=== PATIENT | female | born 1955 | race Caucasian/White ===

== ENCOUNTER 2017-01-08 14:28 | Emergency (ER) | payer OTHER ==
--- NOTE | 2017-01-08 14:56 | CPEKG ---
Heart Rate: 67 RR Interval: 896 P-R Interval: 184 QRSD Interval: 70 QT Interval: 388 QTC Interval: 410 P [place]: 87 QRS Kenneth: 32 T Wave Kenneth: 65 EKG Severity - NORMAL ECG - EKG Impression: SINUS RHYTHM Electronically Signed By: Donna Pastrana 08-Jan-2017 15:54:47
--- NOTE | 2017-01-08 15:31 | EDPHY ---
H & P Stated Complaint: C/O tingling palm L hand noticed after using handweights Source: Patient - Personal History Current Tetanus Diphtheria and Acellular Pertussis (TDAP): Yes - Medical/Surgical History Other PMH: chronic issues with neck/L shoulder/low back issues. L-4 stenosis. anxiety/depression. insomnia. TMJ - Social History Smoking Status: Never smoked Time Seen by Provider: 01/08/17 14:40 HPI/ROS: This is a 60-year-old female presenting to the emergency department, complaining of intermittent left arm tingling onset yesterday after working out. Patient states she did have something similar about 2 years ago which resolved. This episode which started yesterday after lifting weights resolved, then this morning after working out again started noting some tingling to the left arm which once again resolved. Denies any shortness of breath or chest pain. Patient did report she is under lot of stress just went out of town and she is having to take care of her mother who has Alzheimer's. Patient also reports she does have chronic issues with her cervical spine and lumbar spine. Denies any other complaints REVIEW OF SYSTEMS: Constitutional: (-)fatigue (-)changes in ADL's Eyes: (-)blurred vision Respiratory: (-)cough (-)shortness of breath Cardiac: (-)chest pain (-)palpitations Gastrointestinal: (-)abdominal pain (-)vomit Musculoskeletal: (-)back pain (+)left arm tingling which has resolved Skin: (-)rashes Neurological: (-) headache (-)dizziness Psych: (-)anxiety (Coty Garcia) - Physical Exam Exam: CONSTITUTIONAL: patient appeared well nourished, non-ill appearing and normally developed. No acute distress. Vital signs as documented. HEENT: NCAT. PERRLA. EOMI. NECK: Supple, FROM (-)C-spine tenderness RESP: Non-labored resp effort, airway patent, CTAB CARDIAC: RRR w/o murmur, ysabel. Normal S1/S2 NEURO: AAOx3 NAD CNII-XII intact ambulatory with steady gait EXTREMITIES: (+)FROM without difficulty. (+)cms intact (+)equal bilat ed transporter strength no deficits noted SKIN: (-)rash. (-)lesions (-)acute injury LYMPH: No lymphadenopathy PSYCH: Normal affect, calm, no distress PSYCH: (-)anxiety (Coty Garcia) Constitutional: Initial Vital Signs Temperature (C) 36.4 C 01/08/17 14:29 Heart Rate 90 01/08/17 14:29 Respiratory Rate 18 01/08/17 14:29 Blood Pressure 162/63 H 01/08/17 14:29 O2 Sat (%) 97 01/08/17 14:29 O2 Delivery Mode Room Air O2 (L/minute) 99 Allergies/Adverse Reactions: NSAIDS (Non-Steroidal Anti-Inflamma Allergy (Severe, Verified 01/08/17 14:35) throat closes up Penicillins Allergy (Mild, Verified 01/08/17 14:35) Rash Sulfa (Sulfonamide Antibiotics) Allergy (Mild, Verified 01/08/17 14:35) Rash Home Medications: Medication Instructions Recorded Mirtazapine [Remeron soltab 15 mg 15 mg PO DAILY 01/08/17 (*)] lamoTRIgine [LamICTAL 100 MG (*)] 100 mg PO 01/08/17 Medical Decision Making - Diagnostics EKG Interpretation: EKG is normal sinus rhythm no ectopy (Coty Garcia) ED Course/Re-evaluation: Discussed the plan of care: EKG--> sinus rhythm no ectopy Discharged home--->stable, discussed discharge instructions with patient 1. Rest, Decrease strenuous activity 2. Follow up with primary care provider, outpatient MRI may be recommended the cervical neck for further evaluation 3. Heating pad or hot tub soaks, you can also use icy Hot or capsaicin to the left trapezius but do not use a heating pad if you are using these topical ointments as you can bring her skin 4. Your EKG was normal no abnormality seen. 5. If at any point in time you feels symptoms have worsened your having chest pain increased anxiety return to the emergency department. Patient verbalized understanding of discharge instructions (Coty Garcia) This patient was seen and examined by me. Neck exam-reproducible left-sided neck tenderness which causes tingling in her hand, motor/sensory intact. I considered a cardiovascular etiology for this patient's discomfort, however her symptoms are most consistent with cervical radiculopathy. She has no exertional pain. The pain has been aggravated after upper extremity weightlifting in the gym. I have advised her to avoid weightlifting for now. ( Donna Pastrana) Differential Diagnosis: Clinical impression cervical radiculopathy, other differential diagnosis considered but not limited to EKG abnormalities, chest pain cervical strain ( Coty Garcia) Departure - Departure Disposition: Home, Routine, Self-Care Clinical Impression: Cervical radiculopathy Condition: Good Instructions: Cervical Radiculopathy (ED) Additional Instructions: Discharged home--->stable, discussed discharge instructions with patient 1. Rest, Decrease strenuous activity 2. Follow up with primary care provider, outpatient MRI may be recommended the cervical neck for further evaluation 3. Heating pad or hot tub soaks, you can also use icy Hot or capsaicin to the left trapezius but do not use a heating pad if you are using these topical ointments as you can bring her skin 4. Your EKG was normal no abnormality seen. 5. If at any point in time you feels symptoms have worsened your having chest pain increased anxiety return to the emergency department. Patient verbalized understanding of discharge instructions Referrals: Jessica Carbajal MD [Primary Care Provider] - As per Instructions
[2017-01-08 15:47] VITALS: BP 130/67; PULSE 71; RESP 16; TEMP 97.3; O2SAT 99
== END 2017-01-08 15:48 | disposition home or self-care (01) ==
DX: M54.12 Radiculopathy, cervical region (principal)

== ENCOUNTER 2017-01-21 10:43 | Emergency (ER) | payer OTHER ==
--- NOTE | 2017-01-21 11:55 | EDPHY ---
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 The patient has a history of known lumbar DJD. She has no prior history of spine surgery. She is not anticoagulated. The patient denies any acute numbness or weakness. The patient denies any upper back pain, cervical spine pain or headache. She specifically denies additional traumatic complaints. Her pain is worsened with flexion and extension as well as axial rotation. She rates her pain is moderate in nature. REVIEW OF SYSTEMS: A comprehensive 10 point review of systems is otherwise negative aside from elements mentioned in the history of present illness. Source: Patient - Personal History Current Tetanus/Diphtheria Vaccine: Unsure Current Tetanus Diphtheria and Acellular Pertussis (TDAP): Unsure - Medical/Surgical History Hx Asthma: No Hx Chronic Respiratory Disease: No Hx Diabetes: No Hx Cardiac Disease: No Hx Renal Disease: No Hx Cirrhosis: No Hx Alcoholism: No Hx HIV/AIDS: No Hx Splenectomy or Spleen Trauma: No Other PMH: chronic issues with neck/L shoulder/low back issues. L-4 stenosis. anxiety/depression. insomnia. TMJ - Social History Smoking Status: Never smoked - Physical Exam Exam: General Appearance: Alert, no distress Head: Atraumatic Eyes: Pupils equal, round, reactive ENT, Mouth: No hemotympanum, no oral trauma Neck: Nontender, trachea midline Respiratory: No chest wall tender, subcutaneous air, lungs clear bilaterally Cardiovascular: Regular rate and rhythm Abdomen: Abdomen is soft and nontender, pelvis stable, right gluteal tenderness present Skin: No lacerations, No abrasion Back: Tenderness to palpation throughout the mid lumbar spine, no hematoma Extremities: Nontender, full range of motion Neurological: A&Ox3, normal motor function, normal sensory exam Constitutional: Initial Vital Signs Temperature (C) 36.4 C 01/21/17 10:45 Heart Rate 92 01/21/17 10:45 Respiratory Rate 22 H 01/21/17 10:45 Blood Pressure 139/110 H 01/21/17 10:45 O2 Sat (%) 100 01/21/17 10:45 O2 Delivery Mode Room Air Allergies/Adverse Reactions: NSAIDS (Non-Steroidal Anti-Inflamma Allergy (Severe, Verified 01/08/17 14:35) throat closes up Penicillins Allergy (Mild, Verified 01/08/17 14:35) Rash Sulfa (Sulfonamide Antibiotics) Allergy (Mild, Verified 01/08/17 14:35) Rash Home Medications: Medication Instructions Recorded Mirtazapine [Remeron soltab 15 mg 15 mg PO DAILY 01/08/17 (*)] lamoTRIgine [LamICTAL 100 MG (*)] 100 mg PO 01/08/17 oxyCODONE IR [Oxycodone Ir (*)] 5 - 10 mg PO Q6 PRN #20 tab 01/21/17 Medical Decision Making - Diagnostics Imagin. Lumbar spine x-ray: Images reviewed by myself, impression: Acute L2 compression fracture. 2. Pelvis x-ray: Images reviewed by myself, impression: Negative for acute fracture ED Course/Re-evaluation: The patient presents to the ED with acute lumbar pain following a mechanical fall. She is neurologically intact. She is noted to have a mild L2 compression fracture. Patient will be fitted in a [place] support brace which was ordered by myself from [facility] orthopedic device on 12:30pm. The patient will be discharged home with a prescription for OxyContin to use in addition to Tylenol. The patient is intolerant to NSAIDs. The patient continues to have a normal neurologic examination without evidence of detectable spinal cord insufficiency noted to lower extremities. She has no hyperreflexia or clonus appreciated. The patient will be discharged home and follow up with our on-call neurosurgeon Dr. Ying. Differential Diagnosis: Differential diagnosis considered includes lumbar compression fracture, myofascial strain, lumbar disc herniation Departure - Departure Disposition: Home, Routine, Self-Care Clinical Impression: Compression fracture of L2 Condition: Good Instructions: Vertebral Compression Fracture (ED) Additional Instructions: 1. Please wear brace as needed for comfort. 2. Tylenol 1 g every 6 hours as needed for pain. 3. Oxycodone as needed for severe pain. 4. Please schedule a follow-up appointment with a neurosurgeon you have been referred to in the next week Referrals: Renny Ying MD [Medical Doctor] - As per Instructions Prescriptions: oxyCODONE IR [Oxycodone Ir (*)] 5 - 10 mg PO Q6 PRN #20 tab PRN Reason: for pain
[2017-01-21 12:30] VITALS: RESP 18; TEMP 98.1
[2017-01-21 14:26] VITALS: BP 122/67; PULSE 84; O2SAT 95
== END 2017-01-21 14:26 | disposition home or self-care (01) ==
DX: S32.020A Wedge compression fracture of second lumbar vertebra, initial encounter for closed fracture (principal); W18.39XA Other fall on same level, initial encounter; Y92.009 Unspecified place in unspecified non-institutional (private) residence as the place of occurrence of the external cause

== ENCOUNTER → 2017-02-22 | Outpatient (CLI) | payer OTHER | LOC: FIMAGING 09:44 | DX: Z12.31 Encounter for screening mammogram for malignant neoplasm of breast (principal) | CPT/HCPCS: G0202 ==

== ENCOUNTER → 2018-03-04 | Outpatient (CLI) | payer OTHER | LOC: FIMAGING 10:40 | PROVIDERS: ATTEND Obstetrics & Gynecology Gynecology | DX: Z12.31 Encounter for screening mammogram for malignant neoplasm of breast (principal) ==

== ENCOUNTER 2018-04-30 14:07 | Emergency (ER) | payer OTHER ==
[2018-04-30] MEDS ORDERED: NS 1,000 ML IV ONE ×2 (14:47→16:33)
--- NOTE | 2018-04-30 14:56 | EDPHY ---
H & P Smoking Status: Never smoked Time Seen by Provider: 04/30/18 14:26 HPI/ROS: CHIEF COMPLAINT: Dizziness HISTORY OF PRESENT ILLNESS: Patient states this morning around 11 o'clock she noticed she was feeling dizzy. She describes the dizziness as a lightheadedness , no spinning sensation. No changes with position. No syncope although she felt lightheaded such that she might pass out. She denies diaphoresis. She has had no chest pain or palpitations. She had no shortness of breath. She was able to do her normal 0.5 hr walk and other exercises this morning without difficulty. She states she ate breakfast and she slept well last night. Additionally she has had no recent medication changes either to prescription or [id number] medications. She had a cardiac workup in November of this year with Dr. Cindy Vaz and was told that her"heart was awesome". This evaluation was done for palpitations. REVIEW OF SYSTEMS: Constitutional: No fever, no chills. Eyes: No discharge. ENT: No sore throat. Cardiovascular: No chest pain, no palpitations. Respiratory: No cough, no shortness of breath. Gastrointestinal: No abdominal pain, no vomiting. Genitourinary: No dysuria. Musculoskeletal: No back pain. Skin: No rashes. Neurological: No headache. General Appearance: Alert, no distress. Eyes: Pupils equal and round no pallor or injection. ENT, Mouth: Mucous membranes moist. Respiratory: There are no retractions, lungs are clear to auscultation. Cardiovascular: Regular rate and rhythm. Gastrointestinal: Abdomen is soft and nontender, no masses, bowel sounds normal. Neurological: Awake and alert, normal cranial nerves, normal strength sensation all 4 extremities. No focal neurologic deficits. Skin: Warm and dry, no rashes. Musculoskeletal: Neck is supple nontender. Extremities are symmetrical, full range of motion, no edema. Psychiatric: Patient is oriented X 3, there is no agitation. Medical/surgical history: Chronic back and shoulder pain, L4 stenosis, anxiety and depression, insomnia, TMJ. Surgeries as child hernia and tonsils. Social history: No alcohol, tobacco, drugs. (Jennie Turpin) Constitutional: Initial Vital Signs Temperature (C) 37 C 04/30/18 14:16 Heart Rate 67 04/30/18 14:16 Respiratory Rate 16 04/30/18 14:16 Blood Pressure 151/65 H 04/30/18 14:16 O2 Sat (%) 100 04/30/18 14:16 O2 Delivery Mode Room Air Allergies/Adverse Reactions: NSAIDS (Non-Steroidal Anti-Inflamma Allergy (Severe, Verified 04/30/18 14:20) throat closes up Penicillins Allergy (Mild, Verified 04/30/18 14:20) Rash Sulfa (Sulfonamide Antibiotics) Allergy (Mild, Verified 04/30/18 14:20) Rash Home Medications: Medication Instructions Recorded Mirtazapine [Remeron soltab 15 mg 15 mg PO DAILY 01/08/17 (*)] lamoTRIgine [LamICTAL 100 MG (*)] 100 mg PO 01/08/17 Fosamax 35 MG 04/30/18 Gabapentin 04/30/18 Medical Decision Making - Diagnostics EKG Interpretation: 12 lead EKG performed at 3:02 p.m. Reveals sinus rhythm at 61 Intervals: P R of 224, other intervals normal [place]: Normal throughout Overall assessment sinus rhythm with first-degree AV block. Please refer to trace master for complete read. (Jermaine Owen) ED Course/Re-evaluation: Course: IV normal saline bolus x1 L. Orthostatics were then checked on patient had a 15 point increase in her pulse when she stood up with still felt slightly lightheaded though improved after 1 L. 2nd L bolus is administered and after that patient felt a further improvement with resolution of lightheadedness while standing. Studies: CBC and urinalysis normal, basic metabolic panel notable for slightly low sodium at 1:34 a.m. And slightly low chloride. Otherwise normal troponin also normal Discussion: After workup, EKG shows no evidence of acute ischemic cardiac disease, heart strain or other red flag findings. Labs are also normal exception of slightly low sodium and chloride that may correlate with some dehydration. Counseled patient regarding this. She felt reassured improved after IV fluids. Patient will follow up with primary care physician for any ongoing symptoms understands need to return emergency department should she develop worsening symptoms despite plan of hydration with electrolyte neutral fluid such as coconut juice, sport drinks etc (Jermaine Owen) Differential Diagnosis: Differential diagnosis includes but is not limited to labyrinthitis, vertigo, dehydration, electrolyte abnormality, acute coronary syndrome, viral syndrome. Discussed with Dr. Jermaine Owen at the time of my departure from the emergency department. Pending testing included EKG, labs, re-evaluation after IV fluids. (Jennie Turpin) - Data Points Laboratory Results: 04/30/18 04/30/18 15:09 15:07 POC Sodium 134 mEq/L L mEq/L (135-145) POC Potassium 3.8 mEq/L mEq/L (3.3-5.0) POC Chloride 94.0 mEq/L L mEq/L (97-110) POC Total CO2 26 mEq/L mEq/L (22-31) POC BUN 12 mg/dL mg/dL (7-23) POC Creatinine 0.6 mg/dL mg/dL (0.6-1.0) POC Glucose 119 mg/dL H mg/dL (70-100) POC Calcium 9.8 mg/dL mg/dL (8.5-10.4) POC Troponin I 0.00 ng/mL ng/mL (0.00-0.08) Medications Given: Discontinued Medications Sodium Chloride (Ns) 1,000 mls @ 0 mls/hr IV EDNOW ONE; Wide Open PRN Reason: Protocol Stop: 04/30/18 14:48 Last Admin: 04/30/18 15:17 Dose: 1,000 mls Sodium Chloride (Ns) 1,000 mls @ 0 mls/hr IV ONCE ONE; Wide Open PRN Reason: Protocol Stop: 04/30/18 16:34 Last Admin: 04/30/18 16:43 Dose: 1,000 mls Point of Care Test Results: CBC CBC Collection Date 04/30/18 CBC Collection Time 15:05 WBC 6.3 RBC 4.29 HGB 12.9 HCT 38.4 PLT 260 Neut # 4.3 Neut 68.9 LYMPH # 1.4 LYMPH 22.3 Other WBC # 0.6 Other WBC 8.8 MCV 89.5 Chemistry 04/30/18 04/30/18 15:09 15:07 POC Sodium 134 mEq/L L mEq/L (135-145) POC Potassium 3.8 mEq/L mEq/L (3.3-5.0) POC Chloride 94.0 mEq/L L mEq/L (97-110) POC Total CO2 26 mEq/L mEq/L (22-31) POC BUN 12 mg/dL mg/dL (7-23) POC Creatinine 0.6 mg/dL mg/dL (0.6-1.0) POC Glucose 119 mg/dL H mg/dL (70-100) POC Calcium 9.8 mg/dL mg/dL (8.5-10.4) POC Troponin I 0.00 ng/mL ng/mL (0.00-0.08) Urine Dip Collection Date 04/30/18 Collection Time 15:30 Specific [place] (1.002-1.030) 1.010 PH (5.0-7.5) 7.0 Leukocytes (Negative) Negative Nitrites (Negative) Negative Protein (Negative) Negative Glucose (Negative) Negative Ketones (Negative) Negative Urobilnogen (0.2-1.0 EU) 0.2 Bilirubin (Negative) Negative Blood (Negative) Negative Departure - Departure Disposition: Home, Routine, Self-Care Clinical Impression: Lightheadedness, Dehydration Condition: Good Instructions: Dehydration (ED) Additional Instructions: Diagnoses: Lightheadedness and dehydration Your EKG and labs look good today with exception of slightly low sodium and chloride likely attributable to dehydration. She received 2 L of saline IV here Plan: Drink plenty of electrolyte balance fluids such as coconut juice or sport drinks. Follow-up with primary care physician for any ongoing symptoms Return the emergency department for any significant worsening despite the treatment plan. Referrals: Jessica Carbajal MD [Primary Care Provider] - As per Instructions
--- NOTE | 2018-04-30 15:05 | CPEKG ---
Heart Rate: 61 RR Interval: 984 P-R Interval: 224 QRSD Interval: 90 QT Interval: 396 QTC Interval: 399 P [place]: 76 QRS [place]: 12 T Wave [place]: 34 EKG Severity - ABNORMAL ECG - EKG Impression: SINUS RHYTHM EKG Impression: FIRST DEGREE AV BLOCK Electronically Signed By: Jermaine Owen 30-Apr-2018 16:51:23
[2018-04-30 17:24] VITALS: BP 131/68
== END 2018-04-30 17:41 | disposition home or self-care (01) ==
LOC: CED 14:07
DX: R42 Dizziness and giddiness (principal); E86.9 Volume depletion, unspecified
CPT/HCPCS: 80048-PO; 84484-PO

== ENCOUNTER → 2018-08-16 | Outpatient (CLI) | payer OTHER | LOC: CIMAGING 12:32 | PROVIDERS: ATTEND Nurse Practitioner Family | DX: R09.89 Other specified symptoms and signs involving the circulatory and respiratory systems (principal); R10.13 Epigastric pain | CPT/HCPCS: 76700-PO ==

== ENCOUNTER → 2018-10-17 | Outpatient (CLI) | payer OTHER ==
[~2018-10-17] MED LIST: IOPAMIDOL (ISOVUE-300) 100 ML BTL ONE
== END ==
LOC: CIMAGING 10:09
PROVIDERS: ATTEND Family Medicine
DX: R93.2 Abnormal findings on diagnostic imaging of liver and biliary tract (principal); N94.89 Other specified conditions associated with female genital organs and menstrual cycle; K59.09 Other constipation
CPT/HCPCS: 74177; Q9967; 82565-PO

== ENCOUNTER → 2018-11-20 | Outpatient (CLI) | payer OTHER | LOC: CIMAGING 14:14 | PROVIDERS: ATTEND Internal Medicine | DX: R00.2 Palpitations (principal); R07.89 Other chest pain; R20.2 Paresthesia of skin | CPT/HCPCS: 71046-PO ==

== ENCOUNTER → 2019-01-28 | Outpatient (CLI) | payer OTHER | LOC: BHFA 13:30 | PROVIDERS: ATTEND Internal Medicine Cardiovascular Disease | DX: R00.2 Palpitations (principal) | CPT/HCPCS: 78452; 93017; A9500 ==

== ENCOUNTER → 2019-02-11 | Outpatient (CLI) | payer OTHER | LOC: BHCLAF 10:45 | PROVIDERS: ATTEND Internal Medicine Cardiovascular Disease | DX: I48.91 Unspecified atrial fibrillation (principal) | CPT/HCPCS: 93306-PO ==

== ENCOUNTER → 2019-03-27 | Outpatient (CLI) | payer OTHER | LOC: CIMAGING 10:23 | PROVIDERS: ATTEND Internal Medicine | DX: Z12.31 Encounter for screening mammogram for malignant neoplasm of breast (principal) ==